=== PATIENT | female | born 1985 | race Caucasian/White ===

== ENCOUNTER 2022-01-21 12:42 | Emergency (ER) | payer OTHER, SELFPAY ==
[2022-01-21] VITALS (9 sets, daily range): BP systolic 118–143; BP diastolic 73–96; PULSE 75–91; RESP 19–29; O2SAT 99–100
--- NOTE | ~2022-01-21 | CT_ITS ---
EXAMINATION: CT abdomen pelvis w con DATE: 01/21/2022 15:39 INDICATION: upper and lower abd pain x 3 days TECHNIQUE: Computed tomography (CT) of the abdomen and pelvis was performed with 100 mL Omnipaque-350 intravenous contrast. Automated exposure control and iterative reconstruction technique were employe d. The dose-length product was 786.51 mGy-cm. COMPARISON: None. FINDINGS: Lower thorax: Unremarkable Liver: Normal. Biliary/Gallbladder: Gallbladder is normal. No bile duct dilation. Pancreas: No mass or duct dilation. Spleen: Normal. Adrenals:No mass. Kidneys: No mass, stone, or hydronephrosis. GI tract: Distal esophageal and gastric wall edema. No small or large bowel dilation. Normal appendix . Mesentery/Peritoneum: No ascites, mass, or free air. Retroperitoneum: No mass. Pelvis: Pelvic organs are within normal limits. Soft Tissues: Soft tissues and body wall unremarkable. Bones: No acute osseous finding. IMPRESSION: Esophagitis/gastritis. Otherwise no acute abdominopelvic process detected. Reviewed, dictated and finalized at location K. [facility]
--- NOTE | 2022-01-21 12:58 | ED.ABDPAIN ---
HPI - Abdominal Pain General Chief Complaint: Abdominal Pain Stated Complaint: upper abd pain Time Seen by Provider: 01/21/22 12:47 History of Present Illness HPI narrative: Patient is a 36-year-old female with history of IUD placement here for evaluation of upper abdominal pain for the past 2 days. Patient describes the pain as a warm sensation across her upper abdomen, and also notes sharp pains in her lower pelvic region. She also notes that she has had vaginal bleeding over the past several days, has an IUD in place and does not typically menstruate with this. Denies any dysuria, urgency or burning, nausea or vomiting, fevers or chills, diarrhea or constipation. Related Data Allergies Allergy/AdvReac Type Severity Reaction Status Date / Time penicillin G Allergy Mild RASH Verified 07/17/17 12:44 Review of Systems Review of Systems: Gen: Denies fevers or chills Eyes: Denies eye pain or visual change ENT: Denies congestion Respiratory: Denies shortness of breath or cough CV: Denies chest pain or palpitations GI: Reports abdominal pain. Denies nausea, emesis or diarrhea denies burning, urgency, frequency or hematuria Musculoskeletal: Denies back pain or muscle pain Neuro: Denies numbness, tingling, weakness or focal weakness Skin: Denies rash Except as documented, all other systems reviewed and negative Exam Narrative: APPEARANCE: Well appearing, no pain in distress, well-nourished. Head: Normocephalic and atraumatic. EYES: PERRLA/EOMI, conjunctivae clear NOSE: No nasal drainage EARS: External ear normal in appearance THROAT: Oropharynx is clear. Mucous membranes are moist. NECK: Supple. No adenopathy, no masses. RESPIRATORY: Airway patent, respirations nonlabored. Clear to auscultation bilaterally, no rales, rhonchi, wheezing. CARDIOVASCULAR: Regular rate and rhythm without murmurs, rubs, or gallops. ABDOMINAL: Tender to palpation in upper abdominal region. Normoactive bowel sounds. Soft, nondistended. No rebound tenderness or guarding. MUSCULOSKELETAL: Extremities are warm and well-perfused. Moves all extremities well. No edema. NEURO: Normal speech. No focal neurologic deficits. SKIN: Skin is warm and dry. No rashes. PSYCHIATRIC: Normal affect/mood. Course Vital Signs Vital signs: Vital Signs Pulse Rate 89 01/21/22 13:08 Respiratory Rate 20 01/21/22 13:08 Blood Pressure 143/96 H 01/21/22 13:08 Pulse Oximetry 99 01/21/22 13:08 Oxygen Delivery Room Air 01/21/22 13:08 Pulse Rate 85 01/21/22 15:47 Respiratory Rate 29 H 01/21/22 15:47 Blood Pressure 126/85 01/21/22 15:47 Pulse Oximetry 100 01/21/22 15:47 Oxygen Delivery Room Air 01/21/22 13:08 MDM - Abdominal Pain MDM Narrative Medical decision making narrative: 36-year-old female here for evaluation of upper abdominal pain over the past several days. She has normal vital signs and is very slightly tender to palpation in her epigastric region; no rebound tenderness or guarding. Basic labs unremarkable, normal lipase. UA is likely contaminated with menstrual blood but shows no signs of infection. Urine negative. CT abdomen pelvis with evidence of gastritis/esophagitis and no other acute findings. Patient declined any pain meds in the ED and was reassured. Encouraged her to continue Pepcid daily until she can see her primary care provider. We discussed return precautions and she voiced understanding. Lab Data Result diagrams: 01/21/22 13:22 01/21/22 13:22 Labs: Lab Results 01/21/22 01/21/22 01/21/22 Range/Units 13:22 13:22 14:42 WBC 7.6 (4.5-10.0) K/mm3 RBC 5.53 H (4.2-5.4) M/mm3 Hgb 14.8 (12.0-15.0) g/dL Hct 44.6 (37.0-47.0) % MCV 80.7 (80-100) fl MCH 26.8 (26-34) pg MCHC 33.2 (32-36) g/dl RDW 13.0 (11.5-14.5) % Plt Count 349 (150-375) k/mm3 MPV 8.8 (7.4-10.4) fl Immature Gran % (Auto) 0.3 (0-0.5) % Neut % (Au
[2022-01-21 13:28] LABS: Basophils Percent Auto 0.5 % (0.2-1.2); Eosinophils Absolute Auto 0.1 K/mm3 (0-0.3); Eosinophils Percent Auto 0.8 % (0-4.4); Hematocrit 44.6 % (37.0-47.0); Hemoglobin 14.8 g/dL (12.0-15.0); Immature Granulocyte Absolute 0.02 K/mm3 (0.00-0.031); Immature Granulocyte Percent A 0.3 % (0-0.5); Lymphocytes Absolute Auto 1.93 K/mm3 (0.9-3.2); Lymphocytes Percent Auto 25.5 % (18.3-44.2); Mean Corpuscular HGB Conc 33.2 g/dl (32-36); Mean Corpuscular Hemoglobin 26.8 pg (26-34); Mean Corpuscular Volume 80.7 fl (80-100); Mean Platelet Volume 8.8 fl (7.4-10.4); Monocytes Absolute Auto 0.4 K/mm3 (0.1-0.6); Monocytes Percent Auto 4.9 % (2.6-8.5); Neutrophils Absolute Auto 5.1 K/mm3 (1.3-6.7); Platelet Count Result 349 k/mm3 (150-375); Red Blood Count 5.53 M/mm3 (4.2-5.4); White Blood Count 7.6 K/mm3 (4.5-10.0)
[2022-01-21 13:40] LABS: Alanine Aminotransferase 38 U/L (6-35); Albumin Level 4.5 g/dL (3.5-5.1); Alkaline Phosphatase 112 U/L (38-126); Anion Gap 11 mmol/L (8-16); Aspartate Amino Transferase 27 U/L (14-36); Bilirubin,Total 0.6 mg/dL (0.2-1.3); Blood Urea Nitrogen 12 mg/dL (7-17); Carbon Dioxide 23 mmol/L (22-30); Chloride 103 mmol/L (98-107); Estimated CRCL calculation 141 ml/min; Estimated Glomerular Filt Rate > 60; Glucose 224 mg/dL (65-110); Lipase 69 U/L (23-300); Potassium 3.9 mmol/L (3.4-5.0); Sodium 137 mmol/L (137-145)
[2022-01-21 14:59] LABS: Appearance Urine Slightly Cloudy (Clear); Bilirubin Urine Negative (Negative); Blood Urine 3+ (Negative); Color Urine Yellow (Yellow); Glucose Urine UA 3+ mg/dL (Negative); Ketones Urine Trace mg/dL (Negative); Leukocyte Esterase Ur Negative LEU/UL (Negative); Nitrate Urine Negative (Negative); Protein Urine 1+ mg/dL (Negative); Specific Grav Ur 1.025 (1.001-1.035); Urobilinogen Urine 0.2 mg/dL (<2.0); pH Urine 5.5 (5.0-9.0)
[2022-01-21 15:12] LABS: Mucus Urine Rare /lpf; RBC Urine >75 /hpf (0-2); Squamous Epithelial Cell Urine Many /hpf (Few)
[2022-01-21 15:16] LABS: Add Urine Microscopic? YES
[2022-01-21 15:24] LABS: Pregnancy On Board Control Positive; Urine Pregnancy Test Negative
== END 2022-01-21 16:25 | disposition home or self-care (01) ==
PROVIDERS: Emergency Provider Physician Assistant
DX: K29.70 Gastritis, unspecified, without bleeding (principal); Z97.5 Presence of (intrauterine) contraceptive device
CPT/HCPCS: 36415; 74177; 80053; 81001; 81025; 83690; 85025; 87086; 99284; Q9967